=== PATIENT | female | born 1955 | race Two or more races ===

== ENCOUNTER 2018-04-03 02:57 | Observation (INO) | payer MEDICAID, OTHER ==
--- NOTE | 2018-04-03 03:21 | EDPHY ---
H & P Stated Complaint: Dizziness x2 days, nausea. Time Seen by Provider: 04/03/18 03:21 HPI/ROS: HPI CHIEF COMPLAINT: Dizziness, room spinning, nausea HISTORY OF PRESENT ILLNESS: Patient very pleasant 62-year-old female, she has a history of hypertension, additionally thyroid disease, she presents emergency room with dizziness. She describes as room spinning sensation. She states this happened her 1 time yesterday morning when she woke up however it shortly resolved on its own. Additionally she went to bed tonight, and around 147 in the morning she woke up with room spinning sensation with associated nausea. She denies any chest pain or shortness of breath denies headache, denies focal weakness, denies numbness or tingling. She states when she moves her head she develops room spinning sensation or dizziness getting worse. Especially when she goes to sit up. No ringing in her ears. No recent illness. She has never had vertigo before. Denies double vision. Past Medical History: Hypertension and thyroid disease Past Surgical History: No surgical history Social History: Denies daily use of drugs alcohol tobacco. Family History: Noncontributory ROS REVIEW OF SYSTEMS: A comprehensive 10 point review of systems is otherwise negative aside from elements mentioned in the history of present illness. Exam Constitutional appears nontoxic, triage nursing summary reviewed, vital signs reviewed, awake/alert. Eyes normal conjunctivae and sclera, EOMI, PERRLA. HENT normal inspection, atraumatic, moist mucus membranes, no epistaxis, neck supple/ no meningismus, no raccoon eyes. Respiratory clear to auscultation bilaterally, normal breath sounds, no respiratory distress, no wheezing. Cardiovascular rate normal, regular rhythm, no murmur, no edema, distal pulses normal. Gastrointestinal soft, non-tender, no rebound, no guarding, normal bowel sounds, no distension, no pulsatile mass. Genitourinary no CVA tenderness. Musculoskeletal no midline vertebral tenderness, full range of motion, no calf swelling, no tenderness of extremities, no meningismus, good pulses, neurovascularly intact. Skin pink, warm, & dry, no rash, skin atraumatic. Neurologic awake, alert and oriented x 3, AAOx3, moves all 4 extremities equally, motor intact, sensory intact, CN II-XII intact, normal cerebellar, normal vision, normal speech. Psychiatric normal mood/affect. Heme/Lymph/Immune no lymphadenopathy. Differential Diagnosis: Includes but is not limited to in a particular order acute vertigo, benign positional vertigo, Meniere's disease, stroke, electrolyte disturbance, dehydration, intracranial bleed Medical Decision Making: Plan for this patient IV establishment blood draw, check electrolytes, IV fluid bolus 1 L normal saline, p. O. Meclizine, IV Valium , CT scan head without contrast and EKG and re-evaluate. Re-evaluation: EKG interpretation by me on record in [employer] system. Impression time of EKG 3:43 a.m., sinus rhythm there is a left bundle-branch block present. When I compare this to her old EKG dated 10/26/2008 is very similar morphology. I do not appreciate acute ischemic changes or signs of cardiac arrhythmia. CT scan head without contrast negative for acute disease process no bleed. Called to me by Dr. Reilly. 0605: I did go re-evaluate the patient this time. She still complains of dizziness it has improved however she reports to me that she is too dizzy to go home and does not feel safe going home. She is agreeable on being admitted for observation today. I have ordered her 2nd L fluid, p.o. Meclizine 25 mg again, and 2.5 [address] Are [address] scan of her head does not show anything acute specifically no bleed or stroke. EKG is nonischemic with a stable left bundle branch block. Electrolytes appropriate. Urinalysis clean. I spoke with Dr. Killian who agrees to admit the patient. Source: Patient - Personal History Current Tetanus/Diphtheria Vaccine: Yes Current Tetanus Diphtheria and Acellular Pertussis (TDAP): Yes - Medical/Surgical History Hx Asthma: No Hx Chronic Respiratory Disease: No Hx Diabetes: No Hx Cardiac Disease: No Hx Renal Disease: No Hx Cirrhosis: No Hx Alcoholism: No Hx HIV/AIDS: No Hx Splenectomy or Spleen Trauma: No Other PMH: Denies - Social History Smoking Status: Never smoked Constitutional: Initial Vital Signs Temperature (C) 37 C 04/03/18 03:02 Heart Rate 82 04/03/18 03:02 Respiratory Rate 17 04/03/18 03:02 Blood Pressure 177/66 H 04/03/18 03:02 O2 Sat (%) 97 04/03/18 03:02 O2 Delivery Mode Room Air Allergies/Adverse Reactions: No Known Allergies Allergy (Unverified 04/03/18 03:07) Home Medications: Medication Instructions Recorded Ascorbic Acid [Vitamin C 500 mg 500 mg PO DAILY 04/03/18 (*)] Carboxymethylcellulose 1% [Refresh 1 drop EACHEYE DAILY PRN 04/03/18 Celluvisc (*)] Levothyroxine [Synthroid 50 mcg 50 mcg PO DAILY06 04/03/18 (*)] Losartan/Hydrochlorothiazide 1 each PO DAILY 04/03/18 [Losartan-Hctz 100-12.5 mg Tab] Meclizine HCl [Meclizine HCl 25 mg 25 mg PO TID PRN #12 tab 04/03/18 (RX,OTC)] Medical Decision Making - Diagnostics Imaging Results: Imaging Impressions Chest X-Ray 04/03/18 03:27 Impression: Clear hypoventilated lungs. - Data Points Laboratory Results: Laboratory Results 04/03/18 03:30 04/03/18 03:30 Medications Given: Discontinued Medications Diazepam (Valium) 2.5 mg IVP EDNOW ONE Stop: 04/03/18 03:28 Last Admin: 04/03/18 03:35 Dose: 2.5 mg Diazepam (Valium) 2.5 mg IVP EDNOW ONE Stop: 04/03/18 06:03 Last Admin: 04/03/18 06:10 Dose: 2.5 mg Sodium Chloride (Ns) 1,000 mls @ 0 mls/hr IV EDNOW ONE; Wide Open PRN Reason: Protocol Stop: 04/03/18 03:27 Last Admin: 04/03/18 03:34 Dose: 1,000 mls Sodium Chloride (Ns) 1,000 mls @ 0 mls/hr IV ONCE ONE PRN Reason: Wide Open Stop: 04/03/18 06:03 Last Admin: 04/03/18 06:09 Dose: 1,000 mls Sodium Chloride (Ns) 1,000 mls @ 125 mls/hr IV CONT ERICK Stop: 09/30/18 06:14 Last Admin: 04/03/18 08:32 Dose: 1,000 mls Meclizine HCl (Meclizine Hcl) 25 mg PO EDNOW ONE Stop: 04/03/18 03:28 Last Admin: 04/03/18 03:35 Dose: 25 mg Meclizine HCl (Meclizine Hcl) 25 mg PO EDNOW ONE Stop: 04/03/18 06:03 Last Admin: 04/03/18 06:10 Dose: 25 mg Departure - Departure Disposition: [facility] Acute Clinical Impression: Vertigo Condition: Fair
[2018-04-03] MEDS ORDERED: NS 1,000 ML IV ONE ×2 (03:26→06:02)
[2018-04-03] MEDS ORDERED: MECLIZINE HCL 25 MG TAB PO ONE ×2 (03:27→06:02)
[2018-04-03] MEDS ORDERED: DIAZEPAM 5 MG/ML 1 ML SYR IVP ONE ×2 (03:27→06:02)
[2018-04-03 03:36] LABS: PLATELET COUNT 167 10^3/uL (150-400)
[2018-04-03 03:44] LABS: INR 0.89 (0.83-1.16); PROTIME(PATIENT) 12.3 SEC (12.0-15.0)
[2018-04-03 03:45] LABS: CREATINE KINASE 120 IU/L (0-156)
--- NOTE | 2018-04-03 03:45 | CPEKG ---
Heart Rate: 73 RR Interval: 822 P-R Interval: 168 QRSD Interval: 142 QT Interval: 436 QTC Interval: 481 P Ronda: 35 QRS Ronda: -13 T Wave Ronda: 80 EKG Severity - ABNORMAL ECG - EKG Impression: SINUS RHYTHM EKG Impression: LEFT BUNDLE BRANCH BLOCK Electronically Signed By: Paulo Carreon 03-Apr-2018 06:49:37
[2018-04-03] MEDS ORDERED: ACETAMINOPHEN 325 MG TAB PO PRN (06:12)
[2018-04-03] MEDS ORDERED: ONDANSETRON 4 MG/2 ML VIAL IVP PRN (06:12)
[2018-04-03] MEDS ORDERED: MECLIZINE HCL 25 MG TAB PO PRN (06:14)
[2018-04-03] MEDS ORDERED: DIAZEPAM 5 MG/ML 1 ML SYR IVP PRN (06:14)
[2018-04-03] MEDS ORDERED: NS 1,000 ML IV SCH (06:15)
[2018-04-03] MEDS ORDERED: CARBOXYMETHYLCELLULOSE 1% 0.4 ML DROPERETTE EACHEYE PRN (11:18)
--- NOTE | 2018-04-03 11:43 | GHP ---
[f rep st] HISTORY AND PHYSICAL DATE OF ADMISSION: 04/03/2018 HISTORY OF PRESENT ILLNESS: The patient is a pleasant 62-year-old female with history of hypothyroid ism, who presents with dizziness as if the room was spinning. It began yesterday. She did not have nausea or vomiting. She did not have chest pain or palpitations or other symptoms. She had no heart symptoms. She has had 1 prior episode that resolved on its own. Importantly, she has not had chest pain. When I see the patient, she is somnolent from having received Valium and meclizine but otherwise well and states she feels better. REVIEW OF SYSTEMS: Complete 10-point review of systems conducted, negative except as noted in the HP I. PAST MEDICAL HISTORY: Hypertension. Hypothyroidism. ALLERGIES: No known drug allergies. HOME MEDICATIONS: Lisinopril/hydrochlorothiazide, levothyroxine, Refresh Celluvisc tears, and vitami n C. SOCIAL HISTORY: No tobacco, no alcohol. FAMILY HISTORY: Son is present at the bedside and healthy. PHYSICAL EXAMINATION: VITAL SIGNS: Temp 37, blood pressure 143/71, pulse 79, breathing 16 times a m inute, 97% on room air. GENERAL: Somnolent, but no acute distress, arousable. HEENT: Sclerae anict audrey. Oropharynx clear. Mucous membranes moist. NECK: Supple without lymphadenopathy or JVD. DAVY GS: Clear to auscultation bilaterally. HEART: S1, S2 without murmurs. ABDOMEN: Soft, nontender, n ondistended. LOWER EXTREMITIES: No edema, calves nontender. SKIN: Without rash. NEUROLOGIC: Nonf ocal. There is no focal weakness. The patient does not have lateral nystagmus. LABS: White count 6, hematocrit of 42, platelets are 167. Coags normal. Metabolic panel is normal. LFTs are normal other than a slightly elevated ALT at 56. Troponin is less than 0.012. BNP is 112 . Lipase 166. UA is negative. Chest x-ray interpreted by me shows no acute cardiopulmonary disease. EKG interpreted by me shows left bundle branch block and sinus rhythm at 73. Head CT shows no significant abnormality with mild diffuse atrophy. I discussed the case with . ASSESSMENT/PLAN: A 62-year-old female with vertigo. 1. Vertigo. I think this is peripheral vertigo based on the symptoms and response to medications. The patient is anxious to leave the hospital today. Will have Physical Therapy and Radiological Technologist apy see her and continue her p.r.n. medications. 2. Somnolence. This is attributable to her medications plus being up all night. Will follow. 3. Left bundle branch block pattern in the setting of noncardiac complaints. This can be followed u p as an outpatient. 4. Hypothyroidism. Continue her thyroid medication. 5. Disposition. Observation status. /[id number]/MODL
--- NOTE | 2018-04-03 13:54 | HOSPPROG ---
Hospitalist Progress Note Assessment/Plan: symptomatically improved seen by pt and ot home today see dc summary Objective: Vital Signs Temp Pulse Resp BP Pulse Ox 36.6 C 79 16 143/71 H 97 04/03/18 08:23 04/03/18 08:23 04/03/18 08:23 04/03/18 08:23 04/03/18 08:23 04/02/18 04/03/18 04/04/18 05:59 05:59 05:59 Intake Total 3000 Balance 3000 PT 12.3 SEC (12.0-15.0) 04/03/18 03:30 INR 0.89 (0.83-1.16) 04/03/18 03:30 ICD10 Worksheet Patient Problems: Problems Problem Status Onset Vertigo Acute
[2018-04-03 14:04] VITALS: BP 152/75
--- NOTE | 2018-04-03 14:08 | GDS ---
[f rep st] DISCHARGE SUMMARY DISCHARGE DIAGNOSIS: Vertigo. HOSPITAL COURSE: Please see admission history and physical by Dr. Augustus Pablo. The patient prese nted with vertigo. She was treated symptomatically. She actually did pretty well and had symptomati c improvement, was anxious for discharge. I am discharging her home today. She is given a limited p rescription for meclizine. Seen by PT and OT and cleared. /[id number]/MODL
[2018-04-04] MEDS ORDERED: LEVOTHYROXINE 50 MCG TAB PO SCH (06:00)
[2018-04-04] MEDS ORDERED: ASCORBIC ACID 500 MG TAB PO SCH (09:00)
[2018-04-04] MEDS ORDERED: LOSARTAN POTASSIUM 50 MG TAB PO SCH (09:00)
[2018-04-04] MEDS ORDERED: LOSARTAN/HCTZ 50/12.5 1 TAB PO SCH (09:00)
== END 2018-04-03 15:46 | disposition home or self-care (01) ==
LOC: F3E 08:20
PROVIDERS: ADMIT Family Medicine; ATTEND Family Medicine
DX: R42 Dizziness and giddiness (principal); I10 Essential (primary) hypertension; E03.9 Hypothyroidism, unspecified
CPT/HCPCS: 70450; 71045; 93005; 96361; 96374; 96376; 97161; 97165; 99285; G0378; J3360